=== PATIENT | female | born 1930 ===

== ENCOUNTER 2017-08-05 23:17 | Inpatient (IN) | payer OTHER ==
[~2017-08-05] VITALS: Ht 157.5 cm; Wt 36.3 kg
[~2017-08-05 23:17] MED LIST: ALEVE220 M1 PO; CEFADROXIL500 MG PO; FOSAMAX70 MG PO; METFORMIN HCL500 M1 PO; METOPROLOL SUCC25 MG PO; PERCOCET 5/3251 TAB PO; SIMVASTATIN5 MG PO; [UNRECOGNIZED DRUG - OTHER] PO; [UNRECOGNIZED DRUG - OTHER] PO
[2017-08-14] MEDS ORDERED: IPRATROPIU0.2 MG/1 M IH (11:17)
[2017-08-14] MEDS ORDERED: METOPROLOL SUCC25 MG PO (11:18)
[2017-08-14] MEDS ORDERED: XOPENEX0.63 MG/3 IH (11:18)
[2017-08-14] MEDS ORDERED: SIMVASTATIN5 MG PO (11:22)
[2017-08-14] MEDS ORDERED: BENZONATATE100 MG PO (11:23)
[2017-08-14] MEDS ORDERED: GUAIFENESI100 MG/52 PO (11:24)
[2017-08-14] MEDS ORDERED: LEVOTHYROXINE25 MCG PO (11:25)
[2017-08-14] MEDS ORDERED: MEDROLPACK PO (11:25)
[2017-08-14] MEDS ORDERED: METFORMIN HCL500 M1 PO (11:30)
[2017-08-14] MEDS ORDERED: FOSAMAX70 MG PO (11:31)
[2017-08-14] MEDS ORDERED: BUDESONIDE0.5 MG/2 M IH (11:35)
== END 2017-08-14 13:46 | disposition home or self-care (01) | DRG 195 ==
LOC: ER 23:17 → SEC-K 08-06 10:14 → SURH 08-06 13:17
PROC: 3E0F7GC Introduction of Other Therapeutic Substance into Respiratory Tract, Via Natural or Artificial Opening (ICD-10-PCS; principal; 2017-08-06)
PROC: 8E0ZXY6 Isolation (ICD-10-PCS; 2017-08-06)
PROC: 4A033R1 Measurement of Arterial Saturation, Peripheral, Percutaneous Approach (ICD-10-PCS; 2017-08-12)
DX: J10.1 Influenza due to other identified influenza virus with other respiratory manifestations (principal); I10 Essential (primary) hypertension; E03.8 Other specified hypothyroidism; E11.65 Type 2 diabetes mellitus with hyperglycemia; R09.02 Hypoxemia; J20.8 Acute bronchitis due to other specified organisms

== ENCOUNTER 2017-08-17 12:43 | Inpatient (IN) | payer OTHER ==
[~2017-08-17] VITALS: Ht 154.9 cm; Wt 36.3 kg
[~2017-08-17 12:43] MED LIST changes: +BENZONATATE100 MG PO; +BUDESONIDE0.5 MG/2 M IH; +GUAIFENESI100 MG/52 PO; +IPRATROPIU0.2 MG/1 M IH; +LEVOTHYROXINE25 MCG PO; +MEDROLPACK PO; +XOPENEX0.63 MG/3 IH
[2017-08-20] MEDS ORDERED: METFORMIN HCL500 M2 PO (13:25)
[2017-08-20] MEDS ORDERED: LEVOTHYROXINE25 MCG PO (13:26)
[2017-08-20] MEDS ORDERED: NORVASC2.5 M1 PO (13:27)
[2017-08-20] MEDS ORDERED: MEMANTINE HCL10 MG PO (13:28)
[2017-08-20] MEDS ORDERED: ZOLOFT50 MG PO (13:29)
[2017-08-20] MEDS ORDERED: ARICEPT10 MG PO (13:30)
== END 2017-09-03 18:37 | disposition expired | DRG 208 ==
LOC: ER 12:43 → ICU 15:58 → MEDJ 08-29 20:57 → MEDI 08-29 20:57 → MEDJ 08-29 20:58
PROC: 5A1945Z Respiratory Ventilation, 24-96 Consecutive Hours (ICD-10-PCS; principal; 2017-08-17)
PROC: 0BH17EZ Insertion of Endotracheal Airway into Trachea, Via Natural or Artificial Opening (ICD-10-PCS; 2017-08-17)
PROC: 4A033R1 Measurement of Arterial Saturation, Peripheral, Percutaneous Approach (ICD-10-PCS; 2017-08-17)
PROC: 3E0F7GC Introduction of Other Therapeutic Substance into Respiratory Tract, Via Natural or Artificial Opening (ICD-10-PCS; 2017-08-17)
PROC: B246ZZZ Ultrasonography of Right and Left Heart (ICD-10-PCS; 2017-08-17)
PROC: 5A09457 Assistance with Respiratory Ventilation, 24-96 Consecutive Hours, Continuous Positive Airway Pressure (ICD-10-PCS; 2017-08-20)
PROC: B020ZZZ Computerized Tomography (CT Scan) of Brain (ICD-10-PCS; 2017-08-25)
PROC: 4A12X4Z Monitoring of Cardiac Electrical Activity, External Approach (ICD-10-PCS; 2017-08-29)
PROC: BW24ZZZ Computerized Tomography (CT Scan) of Chest and Abdomen (ICD-10-PCS; 2017-08-31)
PROC: 0BH17EZ Insertion of Endotracheal Airway into Trachea, Via Natural or Artificial Opening (ICD-10-PCS; 2017-09-03)
DX: J69.0 Pneumonitis due to inhalation of food and vomit (principal); J96.01 Acute respiratory failure with hypoxia; A41.9 Sepsis, unspecified organism; I21.4 Non-ST elevation (NSTEMI) myocardial infarction; I50.23 Acute on chronic systolic (congestive) heart failure; B37.0 Candidal stomatitis; E87.1 Hypo-osmolality and hyponatremia; N39.0 Urinary tract infection, site not specified; J10.08 Influenza due to other identified influenza virus with other specified pneumonia; E03.8 Other specified hypothyroidism; E11.65 Type 2 diabetes mellitus with hyperglycemia; I11.0 Hypertensive heart disease with heart failure; I46.8 Cardiac arrest due to other underlying condition; J20.9 Acute bronchitis, unspecified; B95.7 Other staphylococcus as the cause of diseases classified elsewhere; L89.150 Pressure ulcer of sacral region, unstageable; Z78.1 Physical restraint status